=== PATIENT | male | born 1955 | race Caucasian/White ===

== ENCOUNTER 2018-06-23 12:31 | Emergency (ER) | payer MEDICAID, SELFPAY ==
[2018-06-23 12:38] VITALS: BP 113/52; PULSE 72; RESP 16; TEMP 36.7; O2SAT 97
[2018-06-23] MEDS: Normal Saline 500 ML IV (13:24)
[2018-06-23 13:27] LABS: Abs Immature Grans 0.01 k/cumm (0.0-0.09); Absolute Basophil Count 0.02 k/cumm (0.0-0.2); Absolute Eosinophil Count 0.18 k/cumm (0.0-0.7); Absolute Lymphocyte Count 1.58 k/cumm (1.2-3.4); Absolute Monocyte Count 0.39 k/cumm (0.11-0.7); Absolute Neutrophil Count 5.25 k/cumm (1.2-6.7); Basophils % 0.3; Eosinophils % 2.4; HCT 36.9 % (40.0-50.0); HGB 12.4 g/dL (13.5-17.5); Immature Grans % 0.1; Lymphocytes % 21.3; Mean Corp. HGB Concentration 33.6 g/dL (32.0-36.0); Mean Corpuscular Hemoglobin 30.8 pg (27.0-33.0); Mean Corpuscular Volume 91.6 fL (80-95); Mean Platelet Volume 12.1 fL (8.0-11.0); Monocytes % 5.2; Neutrophils % 70.7; Platelet Count 242 x1000/uL (130-400); RBC 4.03 m/cumm (4.50-6.00); White Blood Cell Count 7.43 k/cumm (4.4-10.8)
--- NOTE | 2018-06-23 13:37 | W.ED.GENAD ---
Discharge Plan Disposition Patient Disposition: HOME Condition: Stable Discharge Details Chief Complaint: Diabetes Clinical Impression: Hyperglycemia, Hyperkalemia Primary Care Provider: Danita Parham ED Provider: Reanna Owusu Home Meds and New Rx's Prescriptions: New sodium polystyrene sulfonate 15 gram powder in packet 15 gm PO DAILY Qty: 3 RF: 0 Continue polyvinyl alcohol [Tears Again (PVA)] 15 ML drops 15 ml Ophthalmic PRN PRNRF: 0 sertraline 100 MG tablet 100 mg PO DAILY RF: 0 Mirtazapine 45 MG TAB.RAPDIS 45 mg PO HS RF: 0 nitroglycerin 0.4 MG tablet, sublingual 0.4 mg Sublingual q 5 mins prn Qty: 25 RF: 0 aspirin [Aspir-81] 81 MG tablet,delayed release (DR/EC) 81 mg PO DAILY RF: 0 polyethylene glycol 3350 17 GM powder in packet 1 tbs PO DAILY PRN PRNRF: 0 fentanyl [Duragesic] 25 MCG patch 72 hour 75 mcg Transdermal .Q 72 HOURS PRNRF: 0 polyethylene glycol 3350 17 GM powder in packet 17 gm PO DAILY PRN PRN (Reason: Constipation) RF: 0 insulin aspart U-100 [Novolog Flexpen U-100 Insulin] 300 UNITS/3 ML insulin pen Sub-Q 0800,1200,1700 RF: 0 Patch Removal [Remove Patch] 1 EACH Each 1 ea Topical Q72H RF: 0 atorvastatin 40 mg Tablet 40 mg PO DAILY RF: 0 torsemide 20 mg Tablet 20 mg PO DAILY RF: 0 trazodone 50 mg Tablet 50 mg PO DAILY RF: 0 clopidogrel [Plavix] 75 mg Tablet 75 mg PO DAILY RF: 0 acetaminophen [Acetaminophen Extra Strength] 500 mg Tablet 2 tab PO BID RF: 0 lisinopril 10 mg Tablet 10 mg PO DAILY RF: 0 metoprolol succinate 25 mg Tablet Extended Release 24 Hr 25 mg PO DAILY RF: 0 fluoxetine [Prozac] 20 mg Capsule 20 mg PO DAILY RF: 0 metformin 1,000 mg Tablet 1,000 mg PO BID RF: 0 insulin glargine [Lantus Solostar U-100 Insulin] 300 UNITS/3 ML insulin pen 22 units Sub-Q HS RF: 0 multivitamin 1 EACH capsule 1 cap PO DAILY RF: 0 No Action spironolactone 25 mg tablet 25 mg PO DAILY RF: 0 Discharge Instructions Instructions: Sodium Polystyrene Sulfonate (By mouth), Hyperkalemia (ED), Diabetic Hyperglycemia (ED) Additional Instructions: Please return immediately to the emergency department if you develop any new or worsening symptoms or if youbecome otherwise concerned. It is extremely important that you make an appointment to be seen by your primary care doctor this week in follow-up for this visit. Referrals: Danita Parham MD, [place] [Primary Care Provider] - Discharge Data Discharge Date/Time-TO BE ENTERED AT DEPARTURE: 06/23/18 21:56 Medical Decision Making Gurwinder Parikh is a 63 y/o man with h/o IDDM, HTN, CVA who resides at the [facility] and was sent to the emergency department today when he was found to have blood sugar of 400; Pt is asymptomatic. On exam Pt appears non-toxic, slightly dehydrated. Benign cardiopulmonary and abdominal exam. Plan for screening labs, IVF hydration. Pt with elevated blood sugar, no elevated anion gap. No DKA. Mild hyperkalemia. Plan to continue IVF, will treat hyperglycemia with sliding scale. Repeat finger stick improved but still elevated. Will give additional insulin. Pt continues to be asymptomatic. Repeat fingerstick still elevated. No acute life-threatening process at this time. I discussed patient's lab results with the DIGITAL PRODUCTION OPERATOR on-call, including persistent hyperglycemia at 340 after sliding scale insulin and hyperkalemia of 5.2. She reports that she will relay abnormal lab results to the patient's PCP, Dr. Trimble in the morning for urgent follow-up. Lengthy discussion with Pt re: RTED precautions and importance of outpt f/u with PCP. Medical Records Medical records reviewed: Yes I reviewed the patient's medical records. Lab Data Lab results reviewed: Yes I reviewed the patient's lab results. Laboratory Tests Range/Units 06/23/18 06/23/18 06/23/18 13:00 13:00 13:00 WBC (4.4-10.8) k/cumm 7.43 RBC (4.50-6.00) m/cumm 4.03 L Hgb (13.5-17.5) g/dL 12.4 L Hct (40.0-50.0) % 36.9 L MCV (80-95) fL 91.6 MCH (27.0-33.0) pg 30.8 MCHC (32.0-36.0) g/dL 33.6 RDW (11.8-14.1) % 14.0 Plt Count (130-400) x1000/uL 242 MPV (8.0-11.0) fL 12.1 H Immature Gran % 0.1 Neutrophils % 70.7 Lymphocytes % 21.3 Monocytes % 5.2 Eosinophils % 2.4 Basophils % 0.3 Absolute Neutrophils (1.2-6.7) k/cumm 5.25 Absolute Lymphocytes (1.2-3.4) k/cumm 1.58 Absolute Monocytes (0.11-0.7) k/cumm 0.39 Absolute Eosinophils (0.0-0.7) k/cumm 0.18 Absolute Basophils (0.0-0.2) k/cumm 0.02 Sodium (136-145) mmol/L 131 L Potassium (3.5-5.1) mmol/L 5.2 H Chloride (98-107) mmol/L 94 L Carbon Dioxide (21.0-32.0) mmol/L 28.0 Anion Gap (3-11) mmol/L 9.0 BUN (7-18) mg/dL 34 H Creatinine (0.70-1.30) mg/dL 1.38 H Estimated GFR/1.73 m2 (mL/min/1.73m2) 52.04 Glucose (70-100) mg/dL 490 H Calcium (8.5-10.1) mg/dL 9.5 Total Bilirubin (0.2-1.0) mg/dL 0.3 AST (15-37) U/L 23 ALT (12-78) U/L 27 Alkaline Phosphatase (46-116) U/L 67 Total Protein (6.4-8.2) g/dL 8.3 H Albumin (3.4-5.0) g/dL 4.0 Lipase (73-393) U/L 90 Urine Color (Yellow) Urine Clarity Urine pH (5-8) Ur Specific [place] (1.005-1.025) Urine Protein (Negative) mg/dL Urine Ketones (Negative) mg/dL Urine Blood (Negative) Urine Nitrite (Negative) Urine Bilirubin (Negative) Urine Urobilinogen (Up TO 0.2) EU/dL Ur Leukocyte Esterase (Negative) Urine Glucose (Negative) mg/dL Range/Units 06/23/18 13:50 WBC (4.4-10.8) k/cumm RBC (4.50-6.00) m/cumm Hgb (13.5-17.5) g/dL Hct (40.0-50.0) % MCV (80-95) fL MCH (27.0-33.0) pg MCHC (32.0-36.0) g/dL RDW (11.8-14.1) % Plt Count (130-400) x1000/uL MPV (8.0-11.0) fL Immature Gran % Neutrophils % Lymphocytes % Monocytes % Eosinophils % Basophils % Absolute Neutrophils (1.2-6.7) k/cumm Absolute Lymphocytes (1.2-3.4) k/cumm Absolute Monocytes (0.11-0.7) k/cumm Absolute Eosinophils (0.0-0.7) k/cumm Absolute Basophils (0.0-0.2) k/cumm Sodium (136-145) mmol/L Potassium (3.5-5.1) mmol/L Chloride (98-107) mmol/L Carbon Dioxide (21.0-32.0) mmol/L Anion Gap (3-11) mmol/L BUN (7-18) mg/dL Creatinine (0.70-1.30) mg/dL Estimated GFR/1.73 m2 (mL/min/1.73m2) Glucose (70-100) mg/dL Calcium (8.5-10.1) mg/dL Total Bilirubin (0.2-1.0) mg/dL AST (15-37) U/L ALT (12-78) U/L Alkaline Phosphatase (46-116) U/L Total Protein (6.4-8.2) g/dL Albumin (3.4-5.0) g/dL Lipase (73-393) U/L Urine Color (Yellow) Yellow Urine Clarity Clear Urine pH (5-8) 6.5 Ur Specific [place] (1.005-1.025) 1.010 Urine Protein (Negative) mg/dL Negative Urine Ketones (Negative) mg/dL Negative Urine Blood (Negative) Negative Urine Nitrite (Negative) Negative Urine Bilirubin (Negative) Negative Urine Urobilinogen (Up TO 0.2) EU/dL 0.2 Ur Leukocyte Esterase (Negative) Negative Urine Glucose (Negative) mg/dL >=1000 H HPI General Date/Time Provider Initiated Documentation: 06/23/18 13:17. Limitations to Documentation: no limitations. Information obtained by: patient. HPI Narrative: Guriwnder Parikh is a 63-year-old man with a history of stroke, hypertension, diabetes presenting to the emergency department for high blood sugar. Patient resides at the [facility], and today was found to have blood sugar in the 400s and was sent to the emergency department. Patient reports that he is having no symptoms. He denies pain, fever, vomiting, diarrhea, shortness of breath, cough, weakness. Feels in his usual state of health. Reports that he has been eating and drinking normally. States his blood sugar is often high and is difficult to control. Has been using insulin as usual. Related Data Home Medications Medication Instructions Recorded Confirmed aspirin [Aspir-81] 81 mg PO DAILY 12/01/12 07/01/18 polyethylene glycol 3350 1 tbs PO DAILY PRN PRN 12/11/16 07/01/18 multivitamin 1 cap PO DAILY 12/22/16 07/01/18 Mirtazapine 45 mg PO HS tab-cap 06/08/17 07/01/18 polyvinyl alcohol [Tears Again 15 ml OPHTHALMIC PRN PRN 06/08/17 07/01/18 (PVA)] sertraline 100 mg PO DAILY tab-cap 06/08/17 07/01/18 fentanyl [Duragesic] 75 mcg TRANSDERMAL .Q 72 HOURS PRN 02/20/18 07/01/18 Patch Removal [Remove Patch] 1 ea TOPICAL Q72H each 02/22/18 07/01/18 insulin aspart U-100 [Novolog 0 units SUB-Q 0800,1200,1700 pen 02/22/18 07/01/18 Flexpen U-100 Insulin] polyethylene glycol 3350 17 gm PO DAILY PRN PRN packet 02/22/18 07/01/18 nitroglycerin 0.4 mg SUBLINGUAL q 5 mins prn #25 03/19/18 07/01/18 tab-cap acetaminophen [Acetaminophen Extra 2 tab PO BID 06/23/18 07/01/18 Strength] atorvastatin 40 mg PO DAILY 06/23/18 07/01/18 clopidogrel [Plavix] 75 mg PO DAILY 06/23/18 07/01/18 fluoxetine [Prozac] 20 mg PO DAILY 06/23/18 07/01/18 insulin glargine [Lantus Solostar 22 units SUB-Q HS 06/23/18 06/23/18 U-100 Insulin] lisinopril 10 mg PO DAILY 06/23/18 07/01/18 metformin 1,000 mg PO BID 06/23/18 07/01/18 metoprolol succinate 25 mg PO DAILY 06/23/18 07/01/18 sodium polystyrene sulfonate 15 gm PO DAILY #3 each 06/23/18 07/01/18 torsemide 20 mg PO DAILY 06/23/18 07/01/18 trazodone 50 mg PO DAILY 06/23/18 07/01/18 spironolactone 25 mg tablet 25 mg PO DAILY 07/01/18 07/01/18 Previous Rx's Medication Instructions Recorded Patch Removal [Remove Patch] 1 ea TOPICAL Q72H each 02/22/18 insulin aspart U-100 [Novolog 0 units SUB-Q 0800,1200,1700 pen 02/22/18 Flexpen U-100 Insulin] polyethylene glycol 3350 17 gm PO DAILY PRN PRN packet 02/22/18 nitroglycerin 0.4 mg SUBLINGUAL q 5 mins prn #25 03/19/18 tab-cap sodium polystyrene sulfonate 15 gm PO DAILY #3 each 06/23/18 Allergies Allergy/AdvReac Type Severity Reaction Status Date / Time Yzktffi-[id number]-Sqg Reductase Allergy Intermediate Unverified 07/01/18 12:04 Inhibitor General Stated Complaint: Diabetes EJ: 3 Review of Systems Review of Systems Constitutional: denies fevers Eyes: denies eye pain ENT: denies facial pain, dental pain, sore throat Cardiovascular: denies chest pain, edema Respiratory: denies SOB, cough GI: denies abdominal pain, vomiting, diarrhea : denies flank pain MSK: denies back pain, neck pain, arthralgias, myalgias Skin: denies rash Neuro: denies headaches, lightheadedness, weakness PFSH Family History Mother No problems noted. Father No problems noted. Other Myocardial infarction Medical History Anxiety Constipation DM type 1 (diabetes mellitus, type 1) Depression Diabetic neuropathy H/O ETOH abuse H/O drug abuse Hepatitis C Neck fracture Oral phase dysphagia Pharyngeal dysphagia Stroke Tobacco abuse Social History housing: assisted living facility lives independently: Yes number of children: 3 current occupational status: retired and disabled Smoking/Tobacco Use Status: Current every day alcohol intake: former substance use type: marijuana Surgical History Colonoscopy - IV Sedation PEG tube (12/22/16) Total replacement of hip Exam Narrative Exam Narrative: Constitutional: [id number], pleasant, conversing normally HENT: head atraumatic, normocephalic normal inspection, mucous membranes somewhat dry Eyes: conjunctiva normal, sclera normal, pupils 3mm b/l Neck: no stridor, normal ROM, trachea midline Chest: normal inspection Resp: normal work of breathing, LCTAB Cardio: normal rate, normal rhythm, no murmur appreciated GI: abdomen soft, non-tender, non-distended Back: normal inspection, no rash Skin: warm, dry, normal color, no rash Neuro: alert, not altered, grossly non-focal, normal tone Ext: no edema Psych: normal mood, normal affect, normal behavior Course Vital Signs Temperature 36.7 C 06/23/18 12:38 Pulse 72 06/23/18 12:38 Respiratory Rate 16 06/23/18 12:38 Blood Pressure 113/52 L 06/23/18 12:38 Pulse Oximetry 97 06/23/18 12:38 Temperature 36.7 C 06/23/18 12:38 Temperature Source Skin 06/23/18 12:38 Pulse 72 06/23/18 12:38 Respiratory Rate 16 06/23/18 12:38 Blood Pressure 113/52 L 06/23/18 12:38 Pulse Oximetry 97 06/23/18 12:38 Oxygen Delivery Method Room Air 06/23/18 12:38 Oxygen Flow Rate 0 06/23/18 12:38 Pain Level 3 06/23/18 12:38 Lab/Test Results Lab/Test Results: Laboratory Tests Range/Units 06/23/18 13:00 WBC (4.4-10.8) k/cumm 7.43 RBC (4.50-6.00) m/cumm 4.03 L Hgb (13.5-17.5) g/dL 12.4 L Hct (40.0-50.0) % 36.9 L MCV (80-95) fL 91.6 MCH (27.0-33.0) pg 30.8 MCHC (32.0-36.0) g/dL 33.6 RDW (11.8-14.1) % 14.0 Plt Count (130-400) x1000/uL 242 MPV (8.0-11.0) fL 12.1 H Immature Gran % 0.1 Neutrophils % 70.7 Lymphocytes % 21.3 Monocytes % 5.2 Eosinophils % 2.4 Basophils % 0.3 Absolute Neutrophils (1.2-6.7) k/cumm 5.25 Absolute Lymphocytes (1.2-3.4) k/cumm 1.58 Absolute Monocytes (0.11-0.7) k/cumm 0.39 Absolute Eosinophils (0.0-0.7) k/cumm 0.18 Absolute Basophils (0.0-0.2) k/cumm 0.02
[2018-06-23 13:43] LABS: Lipase 90 U/L (73-393)
[2018-06-23 13:47] LABS: ALT 27 U/L (12-78); AST 23 U/L (15-37); Alkaline Phosphatase 67 U/L (46-116); BUN 34 mg/dL (7-18); Bilirubin, Total 0.3 mg/dL (0.2-1.0); CREATININE 1.38 mg/dL (0.70-1.30); Calcium 9.5 mg/dL (8.5-10.1); Chloride 94 mmol/L (98-107); Estimated GFR 52.04 (mL/min/1.73m2); Glucose 490 mg/dL (70-100); Potassium 5.2 mmol/L (3.5-5.1); Sodium 131 mmol/L (136-145); Total Protein 8.3 g/dL (6.4-8.2)
[2018-06-23 14:03] LABS: Bilirubin Negative (Negative); Blood Negative (Negative); Clarity Clear; Glucose >=1000 mg/dL (Negative); Ketones Negative (Negative); Leukocyte Esterase Negative (Negative); Nitrite Negative (Negative); Urobilinogen 0.2 EU/dL (Up TO 0.2); pH 6.5 (5-8)
[2018-06-23] MEDS: Normal Saline 1,000 ML 1000 ML IV (16:27)
[2018-06-23] MEDS: Insulin REGULAR-Human 100 UNITS/ML UNIT 6 UNITS SC (17:51)
[2018-06-23] MEDS: Insulin REGULAR-Human 100 UNITS/ML UNIT 9 UNITS SC (20:00)
--- NOTE | 2018-06-23 21:38 | ED.GENADUL_ITS ---
Discharge Plan Disposition Patient Disposition: HOME Condition: Stable Discharge Details Chief Complaint: Diabetes Clinical Impression: Hyperglycemia, Hyperkalemia Primary Care Provider: Dantia Parham ED Provider: Reanna Owusu Home Meds and New Rx's Prescriptions: New sodium polystyrene sulfonate 15 gram powder in packet 15 gm PO DAILY Qty: 3 RF: 0 Continue polyvinyl alcohol [Tears Again (PVA)] 15 ML drops 15 ml Ophthalmic PRN PRNRF: 0 sertraline 100 MG tablet 100 mg PO DAILY RF: 0 Mirtazapine 45 MG TAB.RAPDIS 45 mg PO HS RF: 0 nitroglycerin 0.4 MG tablet, sublingual 0.4 mg Sublingual q 5 mins prn Qty: 25 RF: 0 aspirin [Aspir-81] 81 MG tablet,delayed release (DR/EC) 81 mg PO DAILY RF: 0 polyethylene glycol 3350 17 GM powder in packet 1 tbs PO DAILY PRN PRNRF: 0 fentanyl [Duragesic] 25 MCG patch 72 hour 75 mcg Transdermal .Q 72 HOURS PRNRF: 0 polyethylene glycol 3350 17 GM powder in packet 17 gm PO DAILY PRN PRN (Reason: Constipation) RF: 0 insulin aspart U-100 [Novolog Flexpen U-100 Insulin] 300 UNITS/3 ML insulin pen Sub-Q 0800,1200,1700 RF: 0 Patch Removal [Remove Patch] 1 EACH Each 1 ea Topical Q72H RF: 0 atorvastatin 40 mg Tablet 40 mg PO DAILY RF: 0 torsemide 20 mg Tablet 20 mg PO DAILY RF: 0 trazodone 50 mg Tablet 50 mg PO DAILY RF: 0 clopidogrel [Plavix] 75 mg Tablet 75 mg PO DAILY RF: 0 acetaminophen [Acetaminophen Extra Strength] 500 mg Tablet 2 tab PO BID RF: 0 lisinopril 10 mg Tablet 10 mg PO DAILY RF: 0 metoprolol succinate 25 mg Tablet Extended Release 24 Hr 25 mg PO DAILY RF: 0 fluoxetine [Prozac] 20 mg Capsule 20 mg PO DAILY RF: 0 metformin 1,000 mg Tablet 1,000 mg PO BID RF: 0 insulin glargine [Lantus Solostar U-100 Insulin] 300 UNITS/3 ML insulin pen 22 units Sub-Q HS RF: 0 multivitamin 1 EACH capsule 1 cap PO DAILY RF: 0 No Action spironolactone 25 mg tablet 25 mg PO DAILY RF: 0 Discharge Instructions Instructions: Sodium Polystyrene Sulfonate (By mouth), Hyperkalemia (ED), Diabetic Hyperglycemia (ED) Additional Instructions: Please return immediately to the emergency department if you develop any new or worsening symptoms or if youbecome otherwise concerned. It is extremely important that you make an appointment to be seen by your primary care doctor this week in follow-up for this visit. Referrals: Danita Parham MD, [place] [Primary Care Provider] - Discharge Data Discharge Date/Time-TO BE ENTERED AT DEPARTURE: 06/23/18 21:56 Medical Decision Making Gurwinder Parikh is a 63 y/o man with h/o IDDM, HTN, CVA who resides at the [facility] and was sent to the emergency department today when he was found to have blood sugar of 400; Pt is asymptomatic. On exam Pt appears non-toxic, slightly dehydrated. Benign cardiopulmonary and abdominal exam. Plan for screening labs, IVF hydration. Pt with elevated blood sugar, no elevated anion gap. No DKA. Mild hyperkalemia. Plan to continue IVF, will treat hyperglycemia with sliding scale. Repeat finger stick improved but still elevated. Will give additional insulin. Pt continues to be asymptomatic. Repeat fingerstick still elevated. No acute life-threatening process at this time. I discussed patient's lab results with the DRUG DEPARTMENT WORKER on-call, including persistent hyperglycemia at 340 after sliding scale insulin and hyperkalemia of 5.2. She reports that she will relay abnormal lab results to the patient's PCP , Dr. Trimble in the morning for urgent follow-up. Lengthy discussion with Pt re: RTED precautions and importance of outpt f/u with PCP. Medical Records Medical records reviewed: Yes I reviewed the patient's medical records. Lab Data Lab results reviewed: Yes I reviewed the patient's lab results. Laboratory Tests Range/Units 06/23/18 06/23/18 06/23/18 13:00 13:00 13:00 WBC (4.4-10.8) k/cumm 7.43 RBC (4.50-6.00) m/cumm 4.03 L Hgb (13.5-17.5) g/dL 12.4 L Hct (40.0-50.0) % 36.9 L MCV (80-95) fL 91.6 MCH (27.0-33.0) pg 30.8 MCHC (32.0-36.0) g/dL 33.6 RDW (11.8-14.1) % 14.0 Plt Count (130-400) x1000/uL 242 MPV (8.0-11.0) fL 12.1 H Immature Gran % 0.1 Neutrophils % 70.7 Lymphocytes % 21.3 Monocytes % 5.2 Eosinophils % 2.4 Basophils % 0.3 Absolute Neutrophils (1.2-6.7) k/cumm 5.25 Absolute Lymphocytes (1.2-3.4) k/cumm 1.58 Absolute Monocytes (0.11-0.7) k/cumm 0.39 Absolute Eosinophils (0.0-0.7) k/cumm 0.18 Absolute Basophils (0.0-0.2) k/cumm 0.02 Sodium (136-145) mmol/L 131 L Potassium (3.5-5.1) mmol/L 5.2 H Chloride (98-107) mmol/L 94 L Carbon Dioxide (21.0-32.0) mmol/L 28.0 Anion Gap (3-11) mmol/L 9.0 BUN (7-18) mg/dL 34 H Creatinine (0.70-1.30) mg/dL 1.38 H Estimated GFR/1.73 m2 (mL/min/1.73m2) 52.04 Glucose (70-100) mg/dL 490 H Calcium (8.5-10.1) mg/dL 9.5 Total Bilirubin (0.2-1.0) mg/dL 0.3 AST (15-37) U/L 23 ALT (12-78) U/L 27 Alkaline Phosphatase (46-116) U/L 67 Total Protein (6.4-8.2) g/dL 8.3 H Albumin (3.4-5.0) g/dL 4.0 Lipase (73-393) U/L 90 Urine Color (Yellow) Urine Clarity Urine pH (5-8) Ur Specific [place] (1.005-1.025) Urine Protein (Negative) mg/dL Urine Ketones (Negative) mg/dL Urine Blood (Negative) Urine Nitrite (Negative) Urine Bilirubin (Negative) Urine Urobilinogen (Up TO 0.2) EU/dL Ur Leukocyte Esterase (Negative) Urine Glucose (Negative) mg/dL Range/Units 06/23/18 13:50 WBC (4.4-10.8) k/cumm RBC (4.50-6.00) m/cumm Hgb (13.5-17.5) g/dL Hct (40.0-50.0) % MCV (80-95) fL MCH (27.0-33.0) pg MCHC (32.0-36.0) g/dL RDW (11.8-14.1) % Plt Count (130-400) x1000/uL MPV (8.0-11.0) fL Immature Gran % Neutrophils % Lymphocytes % Monocytes % Eosinophils % Basophils % Absolute Neutrophils (1.2-6.7) k/cumm Absolute Lymphocytes (1.2-3.4) k/cumm Absolute Monocytes (0.11-0.7) k/cumm Absolute Eosinophils (0.0-0.7) k/cumm Absolute Basophils (0.0-0.2) k/cumm Sodium (136-145) mmol/L Potassium (3.5-5.1) mmol/L Chloride (98-107) mmol/L Carbon Dioxide (21.0-32.0) mmol/L Anion Gap (3-11) mmol/L BUN (7-18) mg/dL Creatinine (0.70-1.30) mg/dL Estimated GFR/1.73 m2 (mL/min/1.73m2) Glucose (70-100) mg/dL Calcium (8.5-10.1) mg/dL Total Bilirubin (0.2-1.0) mg/dL AST (15-37) U/L ALT (12-78) U/L Alkaline Phosphatase (46-116) U/L Total Protein (6.4-8.2) g/dL Albumin (3.4-5.0) g/dL Lipase (73-393) U/L Urine Color (Yellow) Yellow Urine Clarity Clear Urine pH (5-8) 6.5 Ur Specific [place] (1.005-1.025) 1.010 Urine Protein (Negative) mg/dL Negative Urine Ketones (Negative) mg/dL Negative Urine Blood (Negative) Negative Urine Nitrite (Negative) Negative Urine Bilirubin (Negative) Negative Urine Urobilinogen (Up TO 0.2) EU/dL 0.2 Ur Leukocyte Esterase (Negative) Negative Urine Glucose (Negative) mg/dL >=1000 H HPI General Date/Time Provider Initiated Documentation: 06/23/18 13:17 . Limitations to Documentation: no limitations . Information obtained by: patient . HPI Narrative: Gurwinder Parikh is a 63-year-old man with a history of stroke, hypertension, diabetes presenting to the emergency department for high blood sugar. Patient resides at the [facility], and today was found to have blood sugar in the 400s and was sent to the emergency department. Patient reports that he is having no symptoms. He denies pain, fever, vomiting, diarrhea, shortness of breath, cough, weakness. Feels in his usual state of health. Reports that he has been eating and drinking normally. States his blood sugar is often high and is difficult to control. Has been using insulin as usual. Related Data Home Medications Medication Instructions Recorded Confirmed aspirin [Aspir-81] 81 mg PO DAILY 12/01/12 07/01/18 polyethylene glycol 3350 1 tbs PO DAILY PRN PRN 12/11/16 07/01/18 multivitamin 1 cap PO DAILY 12/22/16 07/01/18 Mirtazapine 45 mg PO HS tab-cap 06/08/17 07/01/18 polyvinyl alcohol [Tears Again 15 ml OPHTHALMIC PRN PRN 06/08/17 07/01/18 (PVA)] sertraline 100 mg PO DAILY tab-cap 06/08/17 07/01/18 fentanyl [Duragesic] 75 mcg TRANSDERMAL .Q 72 HOURS PRN 02/20/18 07/01/18 Patch Removal [Remove Patch] 1 ea TOPICAL Q72H each 02/22/18 07/01/18 insulin aspart U-100 [Novolog 0 units SUB-Q 0800,1200,1700 pen 02/22/18 Flexpen U-100 Insulin] polyethylene glycol 3350 17 gm PO DAILY PRN PRN packet 02/22/18 07/01/18 nitroglycerin 0.4 mg SUBLINGUAL q 5 mins prn #25 03/19/18 07/01/18 tab-cap acetaminophen [Acetaminophen Extra 2 tab PO BID 06/23/18 07/01/18 Strength] atorvastatin 40 mg PO DAILY 06/23/18 07/01/18 clopidogrel [Plavix] 75 mg PO DAILY 06/23/18 07/01/18 fluoxetine [Prozac] 20 mg PO DAILY 06/23/18 07/01/18 insulin glargine [Lantus Solostar 22 units SUB-Q HS 06/23/18 06/23/18 U-100 Insulin] lisinopril 10 mg PO DAILY 06/23/18 07/01/18 metformin 1,000 mg PO BID 06/23/18 07/01/18 metoprolol succinate 25 mg PO DAILY 06/23/18 07/01/18 sodium polystyrene sulfonate 15 gm PO DAILY #3 each 06/23/18 07/01/18 torsemide 20 mg PO DAILY 06/23/18 07/01/18 trazodone 50 mg PO DAILY 06/23/18 07/01/18 spironolactone 25 mg tablet 25 mg PO DAILY 07/01/18 07/01/18 Previous Rx's Medication Instructions Recorded Patch Removal [Remove Patch] 1 ea TOPICAL Q72H each 02/22/18 insulin aspart U-100 [Novolog 0 units SUB-Q 0800,1200,1700 pen 02/22/18 Flexpen U-100 Insulin] polyethylene glycol 3350 17 gm PO DAILY PRN PRN packet 02/22/18 nitroglycerin 0.4 mg SUBLINGUAL q 5 mins prn #25 03/19/18 tab-cap sodium polystyrene sulfonate 15 gm PO DAILY #3 each 06/23/18 Allergies Allergy/AdvReac Type Severity Reaction Status Date / Time [id number] Reductase Allergy Intermediate Unverified 07/01/18 12:04 Inhibitor General Stated Complaint: Diabetes EJ: 3 Review of Systems Review of Systems Constitutional: denies fevers Eyes: denies eye pain ENT: denies facial pain, dental pain, sore throat Cardiovascular: denies chest pain, edema Respiratory: denies SOB, cough GI: denies abdominal pain, vomiting, diarrhea : denies flank pain MSK: denies back pain, neck pain, arthralgias, myalgias Skin: denies rash Neuro: denies headaches, lightheadedness, weakness PFSH Family History Mother No problems noted. Father No problems noted. Other Myocardial infarction Medical History Anxiety Constipation DM type 1 (diabetes mellitus, type 1) Depression Diabetic neuropathy H/O ETOH abuse H/O drug abuse Hepatitis C Neck fracture Oral phase dysphagia Pharyngeal dysphagia Stroke Tobacco abuse Social History housing: assisted living facility lives independently: Yes number of children: 3 current occupational status: retired and disabled Smoking/Tobacco Use Status: Current every day alcohol intake: former substance use type: marijuana Surgical History Colonoscopy - IV Sedation PEG tube (12/22/16) Total replacement of hip Exam Narrative Exam Narrative: Constitutional: [id number], pleasant, conversing normally HENT: head atraumatic, normocephalic normal inspection, mucous membranes somewhat dry Eyes: conjunctiva normal, sclera normal, pupils 3mm b/l Neck: no stridor, normal ROM, trachea midline Chest: normal inspection Resp: normal work of breathing, LCTAB Cardio: normal rate, normal rhythm, no murmur appreciated GI: abdomen soft, non-tender, non-distended Back: normal inspection, no rash Skin: warm, dry, normal color, no rash Neuro: alert, not altered, grossly non-focal, normal tone Ext: no edema Psych: normal mood, normal affect, normal behavior Course Vital Signs Temperature 36.7 C 06/23/18 12:38 Pulse 72 06/23/18 12:38 Respiratory Rate 16 06/23/18 12:38 Blood Pressure 113/52 L 06/23/18 12:38 Pulse Oximetry 97 06/23/18 12:38 Temperature 36.7 C 06/23/18 12:38 Temperature Source Skin 06/23/18 12:38 Pulse 72 06/23/18 12:38 Respiratory Rate 16 06/23/18 12:38 Blood Pressure 113/52 L 06/23/18 12:38 Pulse Oximetry 97 06/23/18 12:38 Oxygen Delivery Method Room Air 06/23/18 12:38 Oxygen Flow Rate 0 06/23/18 12:38 Pain Level 3 06/23/18 12:38 Lab/Test Results Lab/Test Results: Laboratory Tests Range/Units 06/23/18 13:00 WBC (4.4-10.8) k/cumm 7.43 RBC (4.50-6.00) m/cumm 4.03 L Hgb (13.5-17.5) g/dL 12.4 L Hct (40.0-50.0) % 36.9 L MCV (80-95) fL 91.6 MCH (27.0-33.0) pg 30.8 MCHC (32.0-36.0) g/dL 33.6 RDW (11.8-14.1) % 14.0 Plt Count (130-400) x1000/uL 242 MPV (8.0-11.0) fL 12.1 H Immature Gran % 0.1 Neutrophils % 70.7 Lymphocytes % 21.3 Monocytes % 5.2 Eosinophils % 2.4 Basophils % 0.3 Absolute Neutrophils (1.2-6.7) k/cumm 5.25 Absolute Lymphocytes (1.2-3.4) k/cumm 1.58 Absolute Monocytes (0.11-0.7) k/cumm 0.39 Absolute Eosinophils (0.0-0.7) k/cumm 0.18 Absolute Basophils (0.0-0.2) k/cumm 0.02
[2018-06-23 21:56] VITALS: BP 119/52; PULSE 64; RESP 16; TEMP 36.9; O2SAT 98
== END 2018-06-23 21:56 | disposition home or self-care (01) ==
PROVIDERS: Emergency Provider Student in an Organized Health Care Education/Training Program; PCP Family Medicine
DX: E11.65 Type 2 diabetes mellitus with hyperglycemia (principal); E87.5 Hyperkalemia; Z79.4 Long term (current) use of insulin; I10 Essential (primary) hypertension
CPT/HCPCS: 36415; 36416; 80053; 82962; 83690; 96360; 96361; 96372; 99284; 81003; 85025

== ENCOUNTER 2018-06-24 12:14 | Outpatient (REF) | payer MEDICAID, SELFPAY ==
[2018-06-24 13:57] LABS: BUN 24 mg/dL (7-18); CREATININE 1.04 mg/dL (0.70-1.30); Calcium 9.5 mg/dL (8.5-10.1); Chloride 99 mmol/L (98-107); Glucose 99 mg/dL (70-100); Potassium 4.9 mmol/L (3.5-5.1); Sodium 139 mmol/L (136-145)
== END 2018-06-24 12:34 ==
LOC: LBN 12:14
PROVIDERS: PCP Family Medicine; Visit Provider Family Medicine
DX: E86.0 Dehydration (principal)
CPT/HCPCS: 80048

== ENCOUNTER 2018-07-28 11:55 | Outpatient (REF) | payer MEDICAID, SELFPAY ==
[2018-07-28 13:57] LABS: Hemoglobin A1C 9.9 % (4.5-6.2)
== END 2018-07-28 12:15 ==
LOC: LBN 11:55
PROVIDERS: PCP Family Medicine; Visit Provider Family Medicine
DX: E10.9 Type 1 diabetes mellitus without complications (principal)
CPT/HCPCS: 83036